=== PATIENT | female | born 1970 | race Caucasian/White ===

== ENCOUNTER 2017-12-30 07:48 | Day surgery (SDC) | payer OTHER ==
[~2017-12-30] VITALS: Ht 170.2 cm; Wt 98.0 kg
[~2017-12-30 07:48] MED LIST: Bisoprolol Fumar5 MG PO; CYCL10 PO; DESV50 PO; GABA300 PO; Hydrocodone-Ap1 EA23 PO; Norco 5-325 Ta1 EACH PO; PROM25 PR; Robaxin-750750 MG PO; TRIA50 PO
[2017-12-30] MEDS ORDERED: METO25ER (08:34)
[2017-12-30] MEDS ORDERED: [UNRECOGNIZED DRUG - SUPPLY] (08:34)
[2017-12-30] MEDS ORDERED: POTCHL10ER (08:35)
[2017-12-30] MEDS ORDERED: VENL25 (08:36)
[2017-12-30] MEDS ORDERED: Maxalt Mlt10 MG (08:36)
[2017-12-30] MEDS ORDERED: ALPR.25 (08:36)
[2017-12-30] MEDS ORDERED: CETI5 (08:37)
[2017-12-30] MEDS ORDERED: TOPI50 (08:37)
[2017-12-30] MEDS ORDERED: ONDA8 (08:37)
[2017-12-30] MEDS ORDERED: BUTALB-ACETAMI1 EACH (08:38)
== END 2017-12-30 11:53 | disposition home or self-care (01) ==
LOC: ORSCSDS 07:48
PROVIDERS: Otolaryngology
PROC: 0GTG0ZZ Resection of Left Thyroid Gland Lobe, Open Approach (ICD-10-PCS; principal; 2017-12-30 09:00)
DX: E04.1 Nontoxic single thyroid nodule (principal); I10 Essential (primary) hypertension; Z79.899 Other long term (current) drug therapy
CPT/HCPCS: J0171; J1100; J2250; J2405; J3010; J7120

== ENCOUNTER 2018-01-21 09:51 | Day surgery (SDC) | payer OTHER ==
[~2018-01-21] VITALS: Ht 170.2 cm; Wt 98.9 kg
[~2018-01-21 09:51] MED LIST changes: +ALPR.25; +ALPR.25 PO; +BUTALB-ACETAMI1 EAC2 PO; +BUTALB-ACETAMI1 EACH; +CETI5; +Dyazide 37.5-21 EACH PO; +HYDR1TAB94 PO; +METO25 PO; +METO25ER; +Maxalt Mlt10 MG; +Maxalt10 MG PO; +ONDA8; +ONDA8 PO; +POTCHL10ER; +POTCHL10ER PO; +PROM25 PO; +TOPI50; +TOPI50 PO; +VENL25; +Venlafaxine HC225 MG PO; +ZYRTEC10 M1 PO; +[UNRECOGNIZED DRUG - SUPPLY]
== END 2018-01-21 13:00 | disposition home or self-care (01) ==
LOC: ORSCSDS 09:51
PROVIDERS: Podiatrist Foot & Ankle Surgery
PROC: 0JNR3ZZ Release Left Foot Subcutaneous Tissue and Fascia, Percutaneous Approach (ICD-10-PCS; principal; 2018-01-21 11:00)
DX: M72.2 Plantar fascial fibromatosis (principal); M79.672 Pain in left foot; I10 Essential (primary) hypertension; F17.210 Nicotine dependence, cigarettes, uncomplicated; Z79.899 Other long term (current) drug therapy
CPT/HCPCS: J0690; J2250; J3010

== ENCOUNTER → 2019-03-22 | Outpatient (CLI) | payer OTHER | LOC: LAB SHORT 19:33 → LAB 19:33 | DX: R30.9 Painful micturition, unspecified (principal) | CPT/HCPCS: 87077; 87086; 87186 ==

== ENCOUNTER 2020-04-16 07:59 | Day surgery (SDC) | payer OTHER ==
[~2020-04-16 07:59] MED LIST changes: +AMLODIPINE BES2.5 MG PO; -BUTALB-ACETAMI1 EAC2 PO; +BUTALB-ACETAMI1 EAC6 PO; +ESCI20 PO; +ROPINIROLE HCL0.5 MG PO; +SYNTHROID50 MC1 PO; +ZESTRIL40 M1 PO
== END 2020-04-16 23:17 | disposition home or self-care (01) ==
LOC: MOI US 07:59 → MOI MAM 08:30 → MOI US 08:30
DX: N63.20 Unspecified lump in the left breast, unspecified quadrant (principal); Z88.1 Allergy status to other antibiotic agents; Z88.2 Allergy status to sulfonamides; Z88.8 Allergy status to other drugs, medicaments and biological substances; Z91.041 Radiographic dye allergy status; Z79.899 Other long term (current) drug therapy
CPT/HCPCS: 19083; 77065; 88305; A4648

== ENCOUNTER → 2020-05-02 | Outpatient (CLI) | payer OTHER | END | disposition home or self-care (01) | LOC: LAB 19:10 → LAB SHORT 19:10 | DX: R10.9 Unspecified abdominal pain (principal) | CPT/HCPCS: 87086 ==

== ENCOUNTER 2023-01-12 06:01 | Day surgery (SDC) | payer OTHER ==
[2023-01-12] VITALS (20 sets, daily range): BP systolic 101–133; BP diastolic 49–112
[~2023-01-12] VITALS: Ht 170.2 cm; Wt 98.0 kg
[~2023-01-12 06:01] MED LIST changes: +BUPR150ER PO; +Estrace Vagin42.5 GM VAG; +KRILL OIL500 MG PO; +MULVITA PO; +Ondansetron Odt8 MG MM; +PROBIOTIC1 EA14 PO; +SUPER B COMPLEX; +UBRELVY100 MG PO; +VITAMIN D325 MC3 PO; +VYVANSE40 M1 PO
--- NOTE | 2023-01-12 10:54 | NUR ---
LATE ENTRY: PRE-OP NOTE: Ambulatory in Day Surgery History, Chart, Medications and Allergies reviewed before start of procedure.Pre-Op teaching done. Pt verbalizes understanding. Patient confirms NPO status and agrees with scheduled surgery.
--- NOTE | 2023-01-12 18:10 | NUR ---
SHIFT SUMMARY PT HAS DONE WELL POST OP. ONCE SPINAL WORE OFF, WAS ABLE TO WORK w/ THERAPY. VOIDING EASILY. PAIN WELL CONTROLLED. PLEASANT & COOPERATIVE.
[2023-01-13 04:22] LABS: BASOPHILS ABSOLUTE AUTO 0.06 K/mm3 (0.00-0.23); BASOPHILS PERCENT AUTO 1 % (0-2); EOSINOPHILS ABSOLUTE AUTO 0.16 K/mm3 (0.00-0.68); EOSINOPHILS PERCENT AUTO 2 % (0-6); Hematocrit 35.7 % (33.0-51.0); Hemoglobin 12.2 g/dL (11.5-16.0); IMMATURE GRAN ABSOLUTE AUTO 0.11 K/mm3 (0.00-0.10); IMMATURE GRAN PERCENT AUTO 1 % (0-1); LYMPHOCYTES ABSOLUTE AUTO 2.52 K/mm3 (0.84-5.20); LYMPHOCYTES PERCENT AUTO 23 % (21-46); MONOCYTES PERCENT AUTO 7 % (4-13); Mean Corpuscular HGB 29.9 pg (26.0-34.0); Mean Corpuscular HGB Conc 34.2 g/dL (31.5-36.5); Mean Corpuscular Volume 88 fL (80-100); Mean Platelet Volume 9.1 fL (9.1-12.4); NEUTROPHILS ABSOLUTE AUTO 7.29 K/mm3 (1.96-9.15); NEUTROPHILS PERCENT AUTO 67 % (41-73); Platelet Count 256 K/mm3 (150-400); RDW Coefficient Variation 12.3 % (11.7-14.2); RDW Standard Deviation 39.5 fL (35.1-46.3); Red Blood Cell Count 4.08 M/mm3 (3.80-5.20); White Blood Cell Count 10.84 K/mm3 (4.00-11.30)
[2023-01-13 04:37] VITALS: BP 92/57
[2023-01-13 04:45] LABS: Bun/Creatinine Ratio 17.1 (12.0-20.0); Calcium, Blood 8.1 mg/dL (8.5-10.1); Creatinine, Blood 0.65 mg/dL (0.40-1.00); Potassium, Blood 3.5 mmol/L (3.5-5.5)
--- NOTE | 2023-01-13 07:30 | NUR ---
SHIFT SUMMARY POD1 R MALOU, PRINEO DRESSING C/D/I, PT AMBULATING TO BATHROOM W/ FWW AND SBA, TOLERATING WELL. PT MEDICATED X2 FOR 5/10 PAIN THIS SHIFT. NO ACUTE CHANGES, CALL LIGHT IN REACH AND USED APPROPRIATELY. A&OX4, PLEASANT AND COOPERATIVE. PT PLANS FOR DC TODAY.
[2023-01-13 08:08] VITALS: BP 110/74
[2023-01-13] MEDS ORDERED: OXYC5 PO (09:23)
[2023-01-13] MEDS ORDERED: ACET500 PO (09:23)
[2023-01-13] MEDS ORDERED: ASPI81CH PO (09:23)
--- NOTE | 2023-01-13 09:35 | NUR ---
DISCHARGE PT HAS CLEARED THERAPY. PAIN WELL CONTROLLED. EATING, DRINKING, & VOIDING WELL. POLAR PACK SENT w/ PT. ESCORTED OUT VIA W/C.
== END 2023-01-13 09:57 | disposition home or self-care (01) ==
LOC: ORSCMMR 06:01 → ORD 07:30 → SURS 11:19 → ORSCMMR 01-13 09:57 → SURS 01-13 09:57
PROVIDERS: Orthopaedic Surgery
PROC: 0SR90JA Replacement of Right Hip Joint with Synthetic Substitute, Uncemented, Open Approach (ICD-10-PCS; principal; 2023-01-12 07:30)
DX: M16.11 Unilateral primary osteoarthritis, right hip (principal); F41.9 Anxiety disorder, unspecified; F32.A Depression, unspecified; I10 Essential (primary) hypertension; Z87.891 Personal history of nicotine dependence; Z79.899 Other long term (current) drug therapy
CPT/HCPCS: 36415; 72170; 80048; 83735; 85025; 97110; 97116; 97161; A9270; C1776; J0171; J0690; J0735; J1885; J2250; J2371; J2704; J2795; J3010; J3370; J7120